=== PATIENT | male | born 1940 | race Caucasian/White ===

== ENCOUNTER 2017-04-13 08:45 | Day surgery (SDC) | payer MEDICARE, BC ==
[2017-04-12 14:04] VITALS: BMI 24.3
[2017-04-13] MEDS ORDERED: Prevnar 13-Val Conj/PF 0.5 ML SYRINGE IM ONE (13:00)
--- NOTE | 2017-04-13 13:07 | OP ---
DATE OF PROCEDURE: 04/13/2017 PREOPERATIVE DIAGNOSES: Mild dysphagia, gastroesophageal reflux disease, chronic diarrhea and microc ytic anemia. PROCEDURE IN DETAIL: Informed consent was obtained from the patient. He was sedated with total intr avenous anesthesia. The bite block was placed and the endoscope was advanced easily to the second po rtion of the duodenum and retroflexion was performed in the stomach. The esophagus was somewhat tort uous consistent with presbyesophagus. There was a mild Schatzki ring in the distal esophagus. There was a small hiatal hernia present. The esophagus was dilated to 16 mm with a Savary dilator over a guidewire. The 18 mm dilator would not pass due to resistance at the level of the bite block. On se cond look endoscopy, there was no tear in the esophagus after dilation. The stomach was otherwise no rmal including retroflexed views. The pylorus and first and second portions of the duodenum were nor mal. Random biopsies were taken from the duodenum to rule out celiac disease. The patient was turne d around. Rectal exam was performed and was normal. The preparation quality was good. The colonosc ope was advanced to the terminal ileum. The mucosa of the terminal ileum was normal. The ileocecal valve and appendiceal orifice were clearly identified. There was severe diverticulosis of the sigmoi d and descending colon. There was mild diverticulosis of the transverse colon. Random biopsies were obtained from the colon to rule out microscopic colitis. There were some barotrauma in the ascendin g colon and cecum which could reduce the sensitivity for evaluation for arteriovenous malformations. No significant bleeding source was identified otherwise. There were no polyps or protruding lesions . Retroflex views in the rectum revealed moderate internal hemorrhoids. IMPRESSION: 1. Presbyesophagus. 2. Slight stricture in the distal esophagus dilated to 16 mm. There was no change on second look. 3. Small hiatal hernia. 4. Otherwise normal esophagogastroduodenoscopy. Duodenal biopsies taken to rule out celiac disease. 5. Severe diverticulosis of the left colon with mild diverticulosis of the transverse colon. 6. Moderate internal hemorrhoids. 7. Otherwise normal colonoscopy to the terminal ileum. Random biopsies were taken from the colon to rule out microscopic colitis. RECOMMENDATIONS: 1. Await histopathology. 2. Start fiber supplement daily with Metamucil a tablespoon every day. 3. Check iron, TIBC, ferritin, B12, and folate. 4. Follow up in GI Clinic.
[2017-04-13 13:40] LABS: Iron 84 ug/dL (65-175); Iron Binding Capacity, Total 336 mcg/dL (261-462)
[2017-04-13 14:12] LABS: Folate (Folic Acid) 16.2 ng/mL (7.0-31.4)
[2017-04-13] MEDS ORDERED: PHENYLEPHRINE-NS 100 MCG/ML 10 ML SYRINGE ONE (16:51)
[2017-04-13] MEDS ORDERED: PROPOFOL 200 MG/20 ML VIAL ONE (16:51)
[2017-04-13] MEDS ORDERED: Lidocaine 1% PF 5 ML VIAL ONE (16:51)
== END 2017-04-13 13:33 | disposition home or self-care (01) ==
LOC: SDC 08:45
PROVIDERS: ATTEND Internal Medicine Gastroenterology
PROC: 0D738ZZ Dilation of Lower Esophagus, Via Natural or Artificial Opening Endoscopic (ICD-10-PCS; principal; 2017-04-13)
PROC: 0DB98ZX Excision of Duodenum, Via Natural or Artificial Opening Endoscopic, Diagnostic (ICD-10-PCS; 2017-04-13)
PROC: 0DBE8ZX Excision of Large Intestine, Via Natural or Artificial Opening Endoscopic, Diagnostic (ICD-10-PCS; 2017-04-13)
DX: K22.8 Other specified diseases of esophagus (principal); K44.9 Diaphragmatic hernia without obstruction or gangrene; K57.30 Diverticulosis of large intestine without perforation or abscess without bleeding; K64.8 Other hemorrhoids; K52.9 Noninfective gastroenteritis and colitis, unspecified; K21.9 Gastro-esophageal reflux disease without esophagitis; D50.9 Iron deficiency anemia, unspecified; I48.91 Unspecified atrial fibrillation; I10 Essential (primary) hypertension; F17.210 Nicotine dependence, cigarettes, uncomplicated; M19.90 Unspecified osteoarthritis, unspecified site; Z86.718 Personal history of other venous thrombosis and embolism; Z79.01 Long term (current) use of anticoagulants; Z79.899 Other long term (current) drug therapy
CPT/HCPCS: 43239; 43248; 45380; 82607; 82728; 82746; 83540; 83550; 90670; G0009; 36415; 88305; 90471; J2001; J2704

== ENCOUNTER 2017-12-16 11:15 | Inpatient (IN) | payer MEDICARE, BC ==
[2017-12-16 11:30] VITALS: BMI 24.3
[2017-12-20] MEDS ORDERED: Midazolam HCl 2 mg/2 ml Vial ONE (06:23)
[2017-12-20] MEDS ORDERED: Fentanyl 100 MCG/2 ML VIAL ONE ×2 (06:23→07:03)
[2017-12-20] MEDS ORDERED: CEFAZOLIN 2 GM/50 ML BAG ONE (06:45)
[2017-12-20] MEDS ORDERED: Phenylephrine HCL 10 MG/ML VIAL ONE (07:04)
[2017-12-20] MEDS ORDERED: Promethazine HCl 25 MG/ML VIAL IM PRN (08:25)
[2017-12-20] MEDS ORDERED: Ondansetron PF 4 MG/2 ML Vial IVP PRN ×2 (08:25→15:34)
[2017-12-20] MEDS ORDERED: traMADol HCl 50 MG TAB PO PRN ×4 (08:25→15:34)
[2017-12-20] MEDS ORDERED: Zolpidem Tartrate 5 MG TAB PO PRN ×2 (08:25→15:34)
[2017-12-20] MEDS ORDERED: Ropivacaine 0.2% 550 ML 550 ML NERVE BLCK SCH (08:25)
[2017-12-20] MEDS ORDERED: Fentanyl 100 MCG/2 ML VIAL IV PRN (08:26)
[2017-12-20] MEDS ORDERED: HYDROcodone/Acetaminophen 7.5/325 mg Tablet PO PRN (08:29)
[2017-12-20] MEDS ORDERED: PHENYLEPHRINE-NS 100 MCG/ML 10 ML SYRINGE ONE ×2 (08:55→16:12)
[2017-12-20] MEDS ORDERED: Tranexamic Acid 1,000 MG in Sodium Chloride 0.9% 100 ML IVPB SCH (09:30)
--- NOTE | 2017-12-20 09:59 | OP ---
DATE OF PROCEDURE: 12/20/2017 PREOPERATIVE DIAGNOSIS: Left rotator cuff arthropathy. POSTOPERATIVE DIAGNOSIS: Left rotator cuff arthropathy. PROCEDURE PERFORMED: Left reverse shoulder arthroplasty. STAFF: Valerio Jain M.D. HARDWARE TEST ENGINEER: Smitha Otto PA-C ANESTHESIA: Johnston. The patient received a interscalene block. ESTIMATED BLOOD LOSS: 200 mL. TOURNIQUET TIME: None. IMPLANTS: A Tornier 25 mm baseplate, a 36 x 25 mm centered glenosphere, a 6B Flex stem, a 36 mm x 9 mm poly and low offset tray with 2 locking and 2 nonlocking screws. ANTIBIOTICS: Ancef 2 grams, vancomycin 1 gram. COMPLICATIONS: None. HISTORY OF PRESENT ILLNESS: Mr. Yen is a 77-year-old male who presented to me with atrial fibr illation, history of DVT, PE on Eliquis. I discussed with the patient the risks and benefits of his left shoulder pain. I discussed he has rotator cuff arthropathy based on imaging. I discussed the r isks and benefits of left reverse shoulder arthroplasty to include pain, scar, bleeding, infection, d amage to vital structures, nerves, arteries, tendons, decreased range of motion or strength, function , pain with overhead activities. I discussed with the patient that it will take him several weeks to recover. I discussed with the patient all these risks and benefits, he elected to proceed. PROCEDURE IN DETAIL: Time out was performed designating the patient's left upper extremity as the op erative site based on sight, consents, and markings. After timeout was performed designating the patient's left upper extremity as the operative site base d on sight, consents, markings. The patient's deltopectoral interval was made down through skin and found the cephalic vein which was taken laterally, came down and took down a centimeter of the pector sajan, came into some tenuous bursal fluid and synovium that was redundant around the biceps as well a s the joint. Opened up and got a large flush of fluid. Evacuated all that fluid from the joint spac e. Came down into the interval, excised some of the bursa, came down onto the lesser and took down t he capsule inferiorly. I had to ligate the patient's cephalic distally because it was buttonholed an d I oversewed it to with a Vicryl stitch. After completion of this, we excised the capsule inferiorl y, exposed the humeral head, dislocated the humeral head. I cut my humeral head. I then started bro aching, had 20 degrees of retroversion with internal opening guide followed by broaching. I broached up to size 5, ultimately placed a 6 stem. I milled down the head and cut the head to fit the stem. After completion of this, we then moved to the glenoid. I exposed the glenoid with a 360 released t he patient's remnant biceps and labrum. Blunt dissection inferiorly to expose the head, I used my gu stephy for 25 mm baseplate, placed a center inferiorly, centered inferiorly, drilled. I then reamed belem ing a little bit inferior aspect of the glenoid off. After completion of this and cleaning up we jun carmita my baseplate, placed my anterior and posterior nonlocking screws, placed my superior inferior loc margareth screws had a good stable fix. I then placed my implant in place, placed a 36 mm glenosphere int o place, screwed it into position. I then moved back to the stem. I went up to 6B, trialed a 9 poly . The patient reduced well, had good overall range of motion of the shoulder. I finally placed a 9 mm with the 6B stem, created a drill hole for closing the remnant suture. The patient's scar/whateve r capsule subscapularis was left. I sewed that down and then used some stitches to close the interva l down to the bone with remnant soft tissue. We had washed. We again cauterized the vein to ensure it was no longer bleeding. We then closed the deltopectoral interval with 0 and 2-0 Vicryl, closed t he subq with 2-0 and closed the skin with maricarmen. He had some areas where the skin was a little bit bruised from the tear, we then placed the patient in a soft tissue dressing. The patient will be placed in a sling. Elbow, wrist, and hand motion. He will be followed in-house. We will start his Eliquis tomorrow.
[2017-12-20] MEDS ORDERED: Ropivacaine 0.5% HCl/PF (150 MG/30 ML VIAL) ONE (13:31)
[2017-12-20] MEDS ORDERED: Ropivacaine 0.2% HCl/PF (40 MG/20 ML VIAL) ONE (13:31)
[2017-12-20] MEDS ORDERED: Ondansetron PF 4 MG/2 ML Vial ONE ×2 (15:13→16:12)
[2017-12-20] MEDS ORDERED: Acetaminophen 325 MG TAB PO PRN (15:34)
[2017-12-20] MEDS ORDERED: HYDROcodone/Acetaminophen 10/325 mg Tablet PO PRN ×2 (15:34)
[2017-12-20] MEDS ORDERED: Ondansetron ODT 4 MG TAB PO PRN (15:34)
[2017-12-20] MEDS ORDERED: Bisacodyl 10 MG SUPP PR PRN (15:34)
[2017-12-20] MEDS ORDERED: diphenhydrAMINE 50 MG CAP PO PRN (15:34)
[2017-12-20] MEDS ORDERED: Methocarbamol 1 GM/10 ML VIAL SLOW IVP PRN (15:34)
[2017-12-20] MEDS ORDERED: Milk Of Magnesia 30 ML UDCUP PO PRN (15:34)
[2017-12-20] MEDS ORDERED: Dexamethasone 20 MG/5 ML VIAL ONE (16:12)
[2017-12-20] MEDS ORDERED: Lidocaine 1% PF 5 ML VIAL ONE (16:12)
[2017-12-20] MEDS ORDERED: ePHEDrine/0.9% NaCl/PF SYRINGE 50 mg/10 ml ONE (16:12)
[2017-12-20] MEDS ORDERED: PROPOFOL 200 MG/20 ML VIAL ONE (16:12)
[2017-12-20] MEDS: Dextrose 5 %-0.45 % NaCl 1,000 ML IV SCH (17:01)
[2017-12-20] MEDS: CEFAZOLIN 2 GM/50 ML BAG IVPB SCH (18:00)
[2017-12-20] MEDS: Famotidine 20 MG TAB PO SCH ×2 (18:04→20:11)
--- NOTE | 2017-12-20 18:09 | RAD ---
TWO VIEWS LEFT SHOULDER: 12/20/17 HISTORY: Post left shoulder surgery. FINDINGS: There are postsurgical changes related to placement of left glenohumeral prosthesis. Skin clips are s een overlying the left shoulder. There is subcutaneous emphysema related to recent postsurgical orlando es. Atelectasis is present at the left lung base with elevation of the left hemidiaphragm. IMPRESSION: Postsurgical changes related to recent left glenohumeral prosthesis. POS: [facility]
[2017-12-20] MEDS ORDERED: Vancomycin HCl 1 GM in Premix Bag 1 BAG IVPB SCH (18:30)
--- NOTE | 2017-12-20 18:47 | RAD ---
PORTABLE AP CHEST X-RAY: 12/20/17 HISTORY: Injury after fall on 12/19/17. FINDINGS: There have been interval postsurgical changes involving the left shoulder with left glenohumeral pros thesis noted. Skin clips are seen lateral to the left shoulder with subcutaneous emphysema likely rel ated to recent postsurgical changes. There is elevation of the left hemidiaphragm with volume loss of the left lung base. The cardiac silh ouette is magnified by projection but does appear enlarged. The thoracic aorta is ectatic. Pulmonary vasculature is within normal limits. Right lung is clear. There are small calcified densities seen ov erlying the right scapula which may represent intra-articular loose bodies within the region of the s ubcoracoid bursa. There is right glenohumeral osteoarthropathy. There is irregularity involving the s uperior aspect of the right humeral head. Osteonecrosis cannot be entirely excluded. There is prominent right convexed scoliosis of the thoracic spine with degenerative changes in the sp ine. IMPRESSION: 1. Sclerosis and irregularity involving the superior aspect of the right humeral head. Findings could be related to osteonecrosis. Dedicated views right shoulder may be helpful for further evaluati on. 2. Probable intra-articular loose bodies in the region of the right subcoracoid bursa. 3. Postsurgical changes left shoulder related to recent placement of left glenohumeral prosthesi s. 4. Atelectasis left lung base with elevation left hemidiaphragm. 5. Cardiomegaly. 6. Right convex scoliosis. POS: [facility]
[2017-12-20] MEDS: HYDROcodone/Acetaminophen 7.5/325 mg Tablet PO PRN (20:12)
[2017-12-20] MEDS ORDERED: Potassium Chloride 10 MEQ TAB PO SCH (21:00)
[2017-12-21] MEDS: HYDROcodone/Acetaminophen 7.5/325 mg Tablet PO PRN ×2 (00:13→11:19)
[2017-12-21] MEDS: CEFAZOLIN 2 GM/50 ML BAG IVPB SCH (02:36)
[2017-12-21] MEDS: Famotidine 20 MG TAB PO SCH (08:22)
[2017-12-21] MEDS: Dextrose 5 %-0.45 % NaCl 1,000 ML IV SCH (08:23)
[2017-12-21] MEDS ORDERED: Losartan 25 MG TAB PO SCH (09:00)
[2017-12-21 11:49] VITALS: TEMP 98.9
[2017-12-21 12:52] VITALS: BP 111/72
== END 2017-12-21 14:49 | disposition home or self-care (01) | DRG 483 ==
LOC: SJJU 12-20 05:32 → SURG A 12-20 14:48
PROVIDERS: ADMIT Orthopaedic Surgery; ATTEND Orthopaedic Surgery
PROC: 0RRK00Z Replacement of Left Shoulder Joint with Reverse Ball and Socket Synthetic Substitute, Open Approach (ICD-10-PCS; principal; 2017-12-20)
DX: M19.012 Primary osteoarthritis, left shoulder (principal); I48.91 Unspecified atrial fibrillation; G89.29 Other chronic pain; M10.9 Gout, unspecified; Z79.02 Long term (current) use of antithrombotics/antiplatelets; Z86.718 Personal history of other venous thrombosis and embolism; Z86.711 Personal history of pulmonary embolism
CPT/HCPCS: 71045; A4306; G8978-GP-CI; G8979-GP-CI; G8980-GP-CI; G8987-GO-CJ; G8988-GO-CI; J2250; J2370; J2405; J2550; J2795; J3010; J3370

== ENCOUNTER 2017-12-16 11:20 | Outpatient (CLI) | payer MEDICARE, BC ==
[2017-12-16 12:39] LABS: Hemoglobin 11.9 g/dL (14.0-18.0); Mean Corpuscular HGB CONC 31.7 g/dL (32.0-36.0); Mean Corpuscular Volume 72.6 fL (78.0-98.0); Mean Platelet Volume 9.7 fL (7.4-10.4); Platelet Count 181 thou/uL (130-400); RBC Distribution Width 14.5 % (11.5-14.5); Red Blood Cell (RBC) Count 5.15 mill/uL (4.70-6.10); White Blood Cell (WBC) Count 6.7 thou/uL (4.8-10.8)
[2017-12-16 12:50] LABS: Bilirubin Negative (Negative); Blood, Urine Negative (Negative); Clarity CLEAR (Clear); Glucose, Urine (Dipstick) Negative (Negative); Leukocyte Negative (Negative); Nitrite Negative (Negative); Protein, Urine (Dipstick) Negative (Neg-Trace); Specific Gravity, Urine 1.011 (1.002-1.036); Urobilinogen 0.2 mg/dL (0.2-1.0)
[2017-12-16 12:53] LABS: Bacteria/HPF None Seen HPF (None Seen); Hyaline Casts/LPF 0-3 HYALINE CAST LPF (0-3 Hyaline); RBC/HPF 0-3 HPF (0-3); Squamous Epithelial None Seen HPF (0-3); WBC/HPF None Seen HPF (0-3)
[2017-12-16 12:56] LABS: Anion Gap 12 mmol/L (10-20); BUN (Urea Nitrogen) 28 mg/dL (8.4-25.7); Calc. Creatinine Clearance 0 mL/min (70-130); Calcium 9.2 mg/dL (7.8-10.44); Carbon Dioxide 25 mmol/L (23-31); Chloride 106 mmol/L (98-107); Estimated GFR-MDRD 54; Glucose 92 mg/dL (83-110); Potassium 4.3 mmol/L (3.5-5.1); Sodium 139 mmol/L (136-145)
--- NOTE | 2017-12-19 11:52 | EKG ---
Test Reason : Blood Pressure : / mmHG Vent. Rate : 075 BPM Atrial Rate : 075 BPM P-R Int : 190 ms QRS Dur : 092 ms QT Int : 430 ms P-R-T Axes : 055 016 033 degrees QTc Int : 480 ms Sinus rhythm Premature atrial complexes Prolonged QT Abnormal ECG Confirmed by ISABELA AMARAL ([id number]) on 12/19/2017 11:51:54 AM Referred By: CRISTINE Confirmed By:ISABELA AMARAL
== END 2017-12-16 11:21 | disposition home or self-care (01) ==
LOC: LABBT 11:20
PROVIDERS: ATTEND Orthopaedic Surgery
DX: Z01.818 Encounter for other preprocedural examination (principal); M19.012 Primary osteoarthritis, left shoulder
CPT/HCPCS: 80048; 81001; 85027; 86850; 86900; 86901; 87081; 93005; 93010

== ENCOUNTER 2017-12-26 13:14 | Inpatient (IN) | payer MEDICARE, BC ==
[~2017-12-26 13:14] MED LIST: ISOVUE-370 76%-LOCM 1 ML ONE
[2017-12-26 14:14] LABS: #Basophils 0.1 thou/uL (0.0-0.2); #Eosinphils 0.1 thou/uL (0.0-0.7); #Monocytes 0.7 thou/uL (0.11-0.59); %Basophils 0.9 % (0.0-1.0); %Eosinophils 1.8 % (0.0-10.0); %Lymphocytes 25.4 % (21.0-51.0); %Monocytes 9.2 % (0.0-10.0); %Neutrophils 62.7 % (42.0-75.0); Hemoglobin 10.2 g/dL (14.0-18.0); Mean Corpuscular HGB CONC 31.7 g/dL (32.0-36.0); Mean Corpuscular Hemoglobin 23.2 pg (27.0-31.0); Mean Corpuscular Volume 73.1 fL (78.0-98.0); Mean Platelet Volume 8.5 fL (7.4-10.4); Platelet Count 278 thou/uL (130-400); Red Blood Cell (RBC) Count 4.38 mill/uL (4.70-6.10); White Blood Cell (WBC) Count 7.9 thou/uL (4.8-10.8)
[2017-12-26 14:36] LABS: ALT (SGPT) 50 U/L (8-55); AST (SGOT) 52 U/L (5-34); Albumin 3.8 g/dL (3.4-4.8); Alkaline Phosphatase 108 U/L (40-150); Anion Gap 14 mmol/L (10-20); BUN (Urea Nitrogen) 22 mg/dL (8.4-25.7); Bilirubin, Total 0.8 mg/dL (0.2-1.2); CK (CPK) 108 U/L (30-200); Calc. Creatinine Clearance 0 mL/min (70-130); Calcium 9.1 mg/dL (7.8-10.44); Carbon Dioxide 22 mmol/L (23-31); Chloride 105 mmol/L (98-107); Estimated GFR-MDRD 62; Globulin 3.4 g/dL (2.4-3.5); Glucose 100 mg/dL (83-110); Potassium 4.5 mmol/L (3.5-5.1); Protein, Total 7.2 g/dL (5.8-8.1); Sodium 136 mmol/L (136-145)
[2017-12-26 14:41] LABS: CKMB 3.3 ng/mL (0-6.6); Troponin I 0.076 ng/mL (< 0.028)
--- NOTE | 2017-12-26 14:48 | RAD ---
CHEST 1 VIEW: Date: 12/26/17 HISTORY: Shortness of breath. COMPARISON: Radiograph dated 12/20/17. FINDINGS: There is a new left shoulder reverse arthroplasty. Lungs are mildly hypoinflated with some atelectati c changes. This is similar. No pneumothorax. No effusion. There is a sliding hiatal hernia. Severe de xtroscoliosis. IMPRESSION: Chronic changes. No acute abnormality. POS: [facility]
--- NOTE | 2017-12-26 16:36 | CT ---
CT ANGIOGRAM CHEST WITH CONTRAST: Date: 12/26/17 HISTORY: Chest pain. Shortness of breath. Recent shoulder surgery. COMPARISON: Chest radiograph same date. TECHNIQUE: CT angiogram chest performed after the intravenous administration of contrast. 3D rendering is provid ed. FINDINGS: Recent postoperative changes of the left shoulder. Severe degenerative changes of the right shoulder. No proximal segmental pulmonary arterial filling defect. Pulmonary trunk size is not enlarged. No pe ricardial effusion. There is reflux of contrast within the suprahepatic IVC, as well as within the he patic veins. Mild tortuosity of the aorta without aneurysmal dilatation. There are scoliotic changes of the thoracic spine and severe dextroscoliosis. Some mild atelectatic c hanges within both lower lobes, as well as within the lingula. There is some bronchiectasis within tavo th lower lobes which may be sequelae of prior infection or aspiration. No pneumothorax. No significant effusion. No acute osseous abnormality. IMPRESSION: 1. No proximal segmental pulmonary arterial filling defect. 2. Mild atelectatic changes lung bases. No evidence for pneumonia. 3. Reflux of contrast within the suprahepatic IVC as well as hepatic veins suggesting diastolic dysf unction. Nonemergent echocardiogram may be beneficial in this patient. POS: [facility]
[2017-12-26] MEDS ORDERED: Furosemide 20 MG/2 ML VIAL ONE (18:07)
[2017-12-26] MEDS ORDERED: Acetaminophen 650 MG Suppository PR PRN (21:07)
[2017-12-26] MEDS ORDERED: Acetaminophen 325 MG TAB PO PRN (21:07)
[2017-12-26] MEDS ORDERED: Allopurinol 300 MG TAB PO SCH ×2 (21:07→21:30)
[2017-12-26] MEDS ORDERED: Apixaban 5 MG TAB PO SCH ×2 (21:07→21:30)
[2017-12-26 21:10] VITALS: BMI 25.3
[2017-12-26] MEDS ORDERED: Potassium Chloride 10 MEQ TAB PO SCH (21:30)
[2017-12-26] MEDS: HYDROcodone/Acetaminophen 5/325 mg Tablet PO PRN (21:44)
[2017-12-26] MEDS: diphenhydrAMINE 25 MG CAP PO PRN (21:44)
[2017-12-27 06:07] LABS: Anion Gap 13 mmol/L (10-20); BUN (Urea Nitrogen) 20 mg/dL (8.4-25.7); Calc. Creatinine Clearance 73 mL/min (70-130); Calcium 8.7 mg/dL (7.8-10.44); Carbon Dioxide 21 mmol/L (23-31); Chloride 106 mmol/L (98-107); Estimated GFR-MDRD 81; Glucose 96 mg/dL (83-110); Potassium 4.2 mmol/L (3.5-5.1); Sodium 136 mmol/L (136-145)
[2017-12-27] MEDS: Furosemide 40 MG/4 ML VIAL SLOW IVP SCH ×2 (06:32→14:44)
[2017-12-27] MEDS: HYDROcodone/Acetaminophen 5/325 mg Tablet PO PRN ×3 (07:17→21:19)
[2017-12-27 07:42] LABS: Hemoglobin 9.4 g/dL (14.0-18.0); Mean Corpuscular HGB CONC 31.1 g/dL (32.0-36.0); Mean Corpuscular Hemoglobin 23.1 pg (27.0-31.0); Mean Corpuscular Volume 74.3 fL (78.0-98.0); Mean Platelet Volume 8.5 fL (7.4-10.4); Platelet Count 247 thou/uL (130-400); RBC Distribution Width 14.3 % (11.5-14.5); Red Blood Cell (RBC) Count 4.05 mill/uL (4.70-6.10); White Blood Cell (WBC) Count 5.4 thou/uL (4.8-10.8)
[2017-12-27 07:56] LABS: Band 2 % (5-11); Elliptocytes SLIGHT = 2-5 cells (100X) (0-1/hpf); Eosinophils 2 % (0-10); Hypochromia SLIGHT = 6-15 cells (100X) (0-5/hpf); Lymphocytes 17 % (21-51); MDiff Complete? YES; Monocytes 8 % (0-10); Neutrophil 70 % (42-75); PLT Morphology Comment Appears Adequate; Polychromasia SLIGHT = 2-3 cells (100X) (0-2/hpf); Target Cells MODERATE= 6-15 cells (100X) (0-1/hpf)
[2017-12-27] MEDS: Apixaban 5 MG TAB PO SCH ×2 (09:28→21:17)
[2017-12-27] MEDS: Amiodarone 200 MG TAB PO SCH (09:28)
[2017-12-27] MEDS: Losartan 25 MG TAB PO SCH (09:28)
--- NOTE | 2017-12-27 13:28 | CON ---
DATE OF CONSULTATION: 12/27/2017 REASON FOR CONSULTATION: Atrial arrhythmias. REFERRING PHYSICIAN: Dr. Raphael Rashid HISTORY OF PRESENT ILLNESS: Mr. Yen is a very pleasant 77-year-old gentleman who was previousl y known to our practice for atrial fibrillation. He underwent pulmonary venous isolation ablation ap proximately 10 years ago with one of my associates, Dr. España. He is usually followed by his EP do victor hugo who now works for [employer]. He does report that he had a recurrence of atrial fibrillation in [facility] of this year and required a cardioversion for his arrhythmia. He is kept on Eliquis for lifelong anticoagulation for history of recurrent DVTs and pulmonary embolisms. Mr. Yen presented to the hospital this occurrence for reported shortness of breath with exertio n, dyspnea on exertion and shortness of breath that started 1 week ago. He had a shoulder replacemen t last Tuesday. He does not have any additional symptoms associated with this shortness of breath, b ut does find that is worse with exertion. It is unchanged by position whether recumbent or upright. He denies any heart racing, palpitations, chest pain, pressure, syncope, near syncope, stroke or str narendra like symptoms or additional heart failure symptoms. He denies any swelling of his extremities. REVIEW OF SYSTEMS: CONSTITUTIONAL: Negative for fevers, chills, malaise, or unintentional weight loss. CARDIOVASCULAR: As per HPI. RESPIRATORY: Positive for shortness of breath and dyspnea on exertion. Negative for wheezing, cough or productive cough. GASTROINTESTINAL: Negative for nausea, vomiting, diarrhea. GENITOURINARY: Negative for frequency, hesitancy or blood in the urine. NEUROLOGIC: Negative for unilateral weakness, numbness, tingling or migraines. PAST MEDICAL HISTORY: 1. Hypertension. 2. Bilateral deep venous thromboses. 3. Bilateral pulmonary embolisms. 4. Atrial fibrillation, status post PVAI approximately [place] [address] España. PAST SURGICAL HISTORY: 1. Left shoulder replacement 12/2017. 2. Scoliosis. SOCIAL HISTORY: Negative for tobacco or illicit drug use. Positive for daily alcohol intake less th an 5 drinks per day. Resides at home. FAMILY HISTORY: Negative for sudden cardiac or early onset coronary artery disease. HOME MEDICATIONS: Colchicine 1 tab as directed, Imodium 2 mg daily, [place] as needed, Lasix 20 mg p.o . q.a.m., Lomotil 2.5 mg as needed, Eliquis 5 mg p.o. b.i.d., amiodarone 200 mg p.o. q.a.m., allopuri nol 600 mg p.o. at bedtime, potassium 10 mEq daily, metoprolol 25 mg daily, losartan 1 tab p.o. q.a.m ., celecoxib 200 mg p.o. daily. PHYSICAL EXAMINATION: VITAL SIGNS: Most recent vital signs include 98.0, heart rate 104, blood pressure 110/65, respiratio ns 14, oxygen is 95% on room air. GENERAL: This is a well-appearing, well-groomed and well-nourished elderly gentleman in no apparent distress. His speech is clear. His affect is appropriate. He is a good historian. NECK: Supple without jugular venous distention. His thyroid is nonpalpable. LUNGS: Clear to auscultation bilaterally without wheezes, crackles or rhonchi. CARDIOVASCULAR: His heart rate is currently irregularly irregular and somewhat rapid. His PMI is no ndisplaced. There is no obvious murmur, rub or gallop appreciated. ABDOMEN: Soft, nontender without palpable masses. Hepatojugular reflux is negative. EXTREMITIES: Warm and dry to touch without clubbing, cyanosis or edema. NEUROLOGIC: Grossly intact and nonfocal. Gait was not assessed. DATABASE: Hematology review is reviewed and is unremarkable except mildly reduced hemoglobin and hem atocrit at 9.4 and 30.1 respectively. Chemistry panel: Potassium 4.2, creatinine 0.91. BNP 703. Echocardiogram: EF 50-55%, moderate to severe concentric left ventricular hypertrophy. TELEMETRY AND EKGs. All were personally reviewed and reflect atypical atrial flutter with occasional RVR and very variable AV conduction. IMPRESSION: 1. Atypical atrial flutter with occasional rapid ventricular response. 2. History of atrial fibrillation, status post ablation in the remote past. 3. Chronic anticoagulation for both atrial arrhythmias and recurrent deep venous thromboses and pulm onary embolisms with Eliquis 5 mg p.o. b.i.d. 4. Dyspnea with exertion. 5. Congestive heart failure with mildly elevated BNP, euvolemic by exam. 6. Hypertrophic cardiomyopathy with a preserved ejection fraction of 55-60%. RECOMMENDATIONS: 1. Continue Eliquis for stroke prophylaxis. 2. CAMPOS cardioversion in the morning at 8:30. 3. Follow up with [facility] to discuss further treatment options or with his established acid painter in [facility]. 4. Continue amiodarone for antiarrhythmic therapy.
--- NOTE | 2017-12-27 15:51 | PDOC.PN ---
- Subjective Encounter Start Date: 12/27/17 Encounter Start Time: 11:45 - Objective Resuscitation Status: Resuscitation Status FULL:Full Resuscitation MAR Reviewed: Yes Vital Signs & Weight: Vital Signs (12 hours) Temp Pulse Resp BP BP Pulse Ox 12/27/17 11:33 98.7 F 83 14 100/60 96 12/27/17 08:00 98.0 F 104 H 14 110/65 95 12/27/17 04:00 98.0 F 81 18 117/69 94 L Weight Weight 164 lb 4.8 oz I&O: 12/26/17 12/27/17 12/28/17 06:59 06:59 06:59 Intake Total 120 Output Total 275 Balance -155 Result Diagrams: 12/27/17 05:08 12/27/17 05:08 Dx/Plan (1) Acute on chronic diastolic CHF (congestive heart failure) Code(s): I50.33 - ACUTE ON CHRONIC DIASTOLIC (CONGESTIVE) HEART FAILURE Status : Acute (2) Atrial flutter Code(s): I48.92 - UNSPECIFIED ATRIAL FLUTTER Status: Acute (3) HTN (hypertension) Code(s): I10 - ESSENTIAL (PRIMARY) HYPERTENSION Status: Acute (4) History of pulmonary embolus (PE) Code(s): Z86.711 - PERSONAL HISTORY OF PULMONARY EMBOLISM Status: Acute - Plan cont current plan of care * . seen by ana cristina for CAMPOS cardioversion in AM.
[2017-12-27] MEDS: Non-Formulary Item 1 EACH (Celecoxib [Celecoxib] 200 MG) PO SCH (20:48)
[2017-12-27] MEDS ORDERED: Potassium Chloride 10 MEQ TAB PO SCH (21:00)
[2017-12-27] MEDS ORDERED: Allopurinol 300 MG TAB PO SCH (21:00)
[2017-12-27] MEDS: diphenhydrAMINE 25 MG CAP PO PRN (21:19)
[2017-12-28 06:06] LABS: Hemoglobin 10.1 g/dL (14.0-18.0); Platelet Count 286 thou/uL (130-400)
[2017-12-28] MEDS: Furosemide 40 MG/4 ML VIAL SLOW IVP SCH ×2 (06:15→13:13)
[2017-12-28] MEDS: Non-Formulary Item 1 EACH (Celecoxib [Celecoxib] 200 MG) PO SCH (07:52)
[2017-12-28] MEDS: Losartan 25 MG TAB PO SCH (07:52)
[2017-12-28 08:42] VITALS: TEMP 97.8
[2017-12-28] MEDS: HYDROcodone/Acetaminophen 5/325 mg Tablet PO PRN (11:49)
[2017-12-28] MEDS: Amiodarone 200 MG TAB PO SCH (11:49)
[2017-12-28] MEDS: Apixaban 5 MG TAB PO SCH (11:51)
[2017-12-28 12:22] VITALS: BP 118/64
--- NOTE | 2017-12-28 12:51 | DIS ---
DATE OF ADMISSION: 12/26/2017 DATE OF DISCHARGE: 12/28/2017 DISCHARGE DIAGNOSES: 1. Atrial flutter. 2. Left atrial clot. 3. Acute on chronic diastolic congestive heart failure. 4. History of deep vein thrombosis and pulmonary embolism on chronic anticoagulation. 5. Chronic atrial fibrillation. 6. Degenerative joint disease. CONSULTATIONS: Electrophysiology, Dr. Christianson. PROCEDURES: Transesophageal echocardiogram on 12/28/2017 that showed some very small amount of left atrial clot, so no cardioversion was done. HISTORY AND PHYSICAL: Mr. Yen is a 77-year-old gentleman who presented to the emergency depart ment 12/26/2017 with shortness of breath that had been going on for about a week. Workup showed atri al flutter and pulmonary edema with elevated BNP. We were called for admission. HOSPITAL COURSE: The patient was seen and examined by me in the emergency department, placed an inpa tient. He underwent diuresis and the following morning I asked the disease education specialist to see him. He was seen by Dr. Christianson who made him n.p.o. with plans for CAMPOS and cardioversion in the morning to be started on Eliquis. The patient's rate was better on digoxin that was started that evening. By , he went to CAMPOS, but did have a small amount of clot, so Dr. Christianson did not feel comfortable ca rdioverting him. He was recommended started on aspirin 81 mg daily. Continue on digoxin and Eliquis and follow him up in a couple of weeks for repeat look to see if the clot had dissolved. The patient is otherwise stable for discharge with outpatient followup with his heart rate better controlled in the 80s. PHYSICAL EXAMINATION: The patient was seen and examined on the day of discharge. Discharge plan and disposition was discussed with the patient and his face to face at the bedside. DISCHARGE MEDICATIONS: New medications: 1. Aspirin 81 mg daily. 2. Digoxin 0.125 mg p.o. daily. HOME MEDICATIONS TO CONTINUE: 1. Eliquis 5 mg p.o. b.i.d. 2. Potassium chloride 10 mEq p.o. daily. 3. Metoprolol tartrate 25 mg p.o. daily. 4. Losartan 50 mg daily. 5. Celebrex 200 mg p.o. t.i.d. 6. Allopurinol 100 mg p.o. q.p.m. MEDICATIONS DISCONTINUED: Amiodarone 200 mg daily. FOLLOWUP APPOINTMENTS: 1. Primary care physician in [address] Christianson in 2-3 weeks. DISCHARGE CONDITION: Stable. DISPOSITION: Discharged to home via private vehicle. DISCHARGE ACTIVITY: Per cardiopulmonary limits. DISCHARGE DIET: Heart healthy recommended.
--- NOTE | 2017-12-28 12:59 | HP ---
DATE OF ADMISSION: 12/26/2017 PRIMARY CARE PHYSICIAN: Billy Richards M.D. PRIMARY FIBERGLASS PIPE COVERING SUPERVISOR: In [place]. TIME OF SERVICE: 1700 hours. CHIEF COMPLAINT: Shortness of breath. HISTORY OF PRESENT ILLNESS: Mr. Yen is a 77-year-old gentleman with a history of chronic atria l fibrillation, status post ablation in the past that apparently failed and remains in chronic atrial fibrillation. He is followed by Cardiology in [place]. He has had about a 1-week history of shortne ss of breath that has been going on since he was discharged last week after shoulder replacement abou t a week prior to presentation. No chest pain or nausea and vomiting. No palpitations. No syncope or presyncope. He denies any orthopnea, no PND. Denies any fevers or chills. No nausea, vomiting, diarrhea, constipation. Workup in the ER showed a BNP elevated in the 700s, his creatinine was normal. Blood counts remained normal and chest x-ray showed some pulmonary edema. We were subsequently called for admission. Patient had no further history. PAST MEDICAL HISTORY: 1. Hypertension. 2. History of bilateral lower extremity DVTs. 3. History of PEs. 4. History of chronic atrial fibrillation, status post cardioversion and ablation in the past. PAST SURGICAL HISTORY: 1. Bilateral total knee replacements. 2. Right shoulder repair, left shoulder surgery recently. 3. Laminectomy. 4. Cardiac ablation. MEDICATIONS: 1. Allopurinol 100 mg p.o. q.p.m. 2. Celebrex 200 mg p.o. t.i.d. 3. Losartan 100 mg daily, recently decreased to 50 mg daily. 4. Metoprolol succinate 25 mg p.o. q.a.m. 5. Potassium chloride 10 mEq p.o. q.p.m. 6. Eliquis 5 mg p.o. b.i.d. 7. Amiodarone 200 mg daily. ALLERGIES: NKDA. FAMILY HISTORY: Negative for clotting or bleeding disorders. No immune dysfunction. SOCIAL HISTORY: Negative for habits x3. He is , monogamous. His is not with him at pre sent. REVIEW OF SYSTEMS: All systems are reviewed and negative except as per HPI. PHYSICAL EXAMINATION: VITAL SIGNS: Temperature 97.7, pulse 86, blood pressure 144/99, respiratory rate 14. Oxygen saturat ion is not recorded, but per the nurse's note, he was not hypoxemic. HEENT: Normocephalic and atraumatic. Pupils are equal, react to light bilaterally. Mucous membrane s moist. No visible lesion. No thrush. NECK: Supple. No lymphadenopathy, JVD, or thyromegaly. LUNGS: Clear to auscultation anteriorly and posteriorly has some bilateral crackles up to about mid- level. They do not clear with deep inspiration. There is no prolonged expiratory phase. No wheezes . ABDOMEN: Soft, is nontender, nondistended. CARDIOVASCULAR: Irregularly irregular. He has no audible murmurs. EXTREMITIES: No cyanosis, no clubbing with trace pedal edema. SKIN: Warm and well perfused without rashes or lesions. MUSCULOSKELETAL: Normal to inspection. Large joints appear normal. The right shoulder recently ope rated on appears normal, without any palpable effusions. He has got good range of motion. NEUROLOGIC: Cranial nerves II-XII are grossly intact. He has no focal deficits, normal speech and 5 /5 strength in his extremities. LABORATORY DATA: Sodium is 136, potassium 4.5, chloride 105, bicarb 22, BUN 22, creatinine 1.15, glu cose 100, calcium 9.1. Liver function within normal limits. His CBC showed a white count of 7.9, he moglobin 16.2, hematocrit 32.0, platelet count is 278,000. BNP was elevated at 703.9 and troponin I was indeterminate at 0.076. IMAGING: Chest x-ray did show some pulmonary edema. EKG showed atrial flutter with variable block. ASSESSMENT AND PLAN: 1. Atrial flutter with rapid ventricular response to variable block. We will monitor him overnight. We will see his cardiac biomarkers. I will continue his home medications and monitor his response. We will put him on some IV Lasix. 2. Acute on chronic diastolic congestive heart failure. He reports that his heart is "twice as thic k as normal" based on his last echocardiogram. We do not have that result here. We will go and gent ly diurese him tonight and see how he responds. 3. Essential hypertension, slightly elevated right now. We will continue his home medications. 4. History of deep venous thrombosis and pulmonary embolism, he is on Eliquis. We will continue thi s. 5. History of chronic atrial fibrillation, not currently in atrial flutter with variable block. May ask EP to see in the morning.
[2017-12-28] MEDS ORDERED: ePHEDrine/0.9% NaCl/PF SYRINGE 50 mg/10 ml ONE (17:31)
[2017-12-28] MEDS ORDERED: Lidocaine 1% PF 5 ML VIAL ONE (17:31)
[2017-12-28] MEDS ORDERED: PROPOFOL 200 MG/20 ML VIAL ONE (17:31)
--- NOTE | 2017-12-28 21:33 | ECHO ---
REASON FOR PROCEDURE: The patient is a 77-year-old man with prior history of atrial fibrillation, keshawn or ablation Dr. España at [facility] in the past about 10 years ago. Now is back with rec urrent atrial fibrillation/flutter. 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 He has been anticoagulated with Eliquis 5 mg twice a day, but has had some interruption for shoulder surgery about a week ago. Now has presented in irregular rhythm. He has been started on 10 mg of amiodarone. Here for a CAMPOS guided cardioversion. PROCEDURE: The patient received propofol by Anesthesia specialist. After adequate level of sedation achieved, a standard transesophageal echocardiogram probe was passed into the esophagus without diff iculty. Patient tolerated the procedure well, no complications noted. RESULTS: 1. The left atrium is a moderately enlarged about 5.2 cm in horizontal diameter. Left atrial append age is well visualized contains heavy spontaneous echo contrast and early formation of clot cannot co mpletely ruled out. The appendage velocities are reduced at 20 cm per second. 2. Four of four pulmonary veins were seen. Left upper pulmonary veins are smaller in diameter than n ormal. Velocity though is not elevated. The right side pulmonary veins are not well visualized. 3. The interatrial septum is free of defect. 4. Mitral valve has mild regurgitation. 5. Left ventricular function is preserved. Left ventricular wall thickness is increased circumferent ially up to 1.8 cm in the inferior wall is documented. The right chambers nondilated. Tricuspid valv e has mild regurgitation. 6. Aortic valve not regurgitant, three leaflets and not stenotic. 7. Pericardial space without effusion 8. Visualized portion the ascending and descending aortic without aneurysm, dissection or significan t atheroma. CONCLUSION: 1. Heavy spontaneous echo contrast throughout the left atrium and left atrial appendage with early f ormation of clot cannot be completely ruled out. 2. Moderate left atrial enlargement. 3. Mild mitral regurgitation and tricuspid regurgitation. No other significant valvular heart disea se noted. 4. Preserved LV systolic function. 5. Moderate left ventricular hypertrophy present. PLAN: Continue anticoagulation for 4 months. For now, we will amiodarone and consider adding digoxin with the rate control and maximize metoprolol therapy. He might be a candidate for ablation procedure after full month of anticoagulation and after repeat C T performed not demonstrating clots in the left atrium and evaluate left pulmonary venous structures. PLAN: Follow up in the office.
[2017-12-29] MEDS ORDERED: Digoxin 0.125 MG TAB PO SCH (09:00)
== END 2017-12-28 14:57 | disposition home or self-care (01) | DRG 308 ==
LOC: ERS 13:14 → ERHOLD 18:09 → 2NO 20:42
PROVIDERS: ADMIT Internal Medicine; ATTEND Internal Medicine
DX: I48.92 Unspecified atrial flutter (principal); I50.33 Acute on chronic diastolic (congestive) heart failure; I11.0 Hypertensive heart disease with heart failure; Z79.899 Other long term (current) drug therapy; Z79.01 Long term (current) use of anticoagulants; Z96.611 Presence of right artificial shoulder joint; Z96.653 Presence of artificial knee joint, bilateral; I48.2 Chronic atrial fibrillation; Z86.718 Personal history of other venous thrombosis and embolism; M19.90 Unspecified osteoarthritis, unspecified site; Z86.711 Personal history of pulmonary embolism
CPT/HCPCS: 36415; 71045; 71275; 80048; 80053; 82550; 82553; 82565; 83735; 83880; 84484; 85014; 85018; 85025; 85049; 92960; 93005; 93306; 93312; 96361; 96374; J1940; J2001; J2704